=== PATIENT | female | born 1960 | race Caucasian/White ===

== ENCOUNTER 2020-08-24 11:43 | Emergency (ER) | payer BC ==
[2020-08-24] MEDS ORDERED: Sodium Chloride 0.9% 10 ML Syringe FLUSH PRN (12:08)
[2020-08-24] MEDS ORDERED: Lactated Ringers 1,000 ML IV ONE (12:20)
--- NOTE | 2020-08-24 12:21 | EDM.PDOC ---
ED HPI GENERAL MEDICAL PROBLEM - General Stated Complaint: FATIGUE,DIARRHEA Time Seen by Provider: 08/24/20 12:05 Source of Information: Reports: Patient History Limitations: Reports: No Limitations - History of Present Illness INITIAL COMMENTS - FREE TEXT/NARRATIVE: Patient comes emergency department today from home after being directed to the ER with complaints of left lower quadrant abdominal pain. This patient for about the last 2 weeks has had diarrhea. The last couple of days her stools have changed to more ribbon type stools. She has also developed left lower quadrant pain that goes into her back. No fever no chills. Some nausea without vomiting. No weakness dizziness lightheadedness. No chest pain shortness of breath or difficulty breathing. No fever no chills. No other pain in her abdomen. She has had hysterectomy in the past. No flank pain. No hematuria dysuria or urinary frequency. No black or tarry stools. She does have a first degree relative her father who of colon cancer. She has received 3 colonoscopies in the past her last one was actually 10 years ago. She is scheduled to have one here in September as well. - Related Data Allergies Allergy/AdvReac Type Severity Reaction Status Date / Time No Known Allergies Allergy Verified 08/24/20 12:57 Home Meds: Home Meds ALPRAZolam [Xanax] 0.5 - 1 mg PO BID PRN 08/24/20 [History] Ciprofloxacin HCl [Cipro] 500 mg PO BID #20 tablet 08/24/20 [Rx] Escitalopram Oxalate 10 mg PO DAILY 08/24/20 [History] Hydrocodone/Acetaminophen [[place] 5-325 Tablet] 1 each PO Q6HR #12 tablet 08/24/20 [Rx] metroNIDAZOLE [Flagyl] 500 mg PO Q8H #30 tab 08/24/20 [Rx] ED ROS GENERAL - Review of Systems Review Of Systems: Comprehensive ROS is negative, except as noted in HPI. ED EXAM, GENERAL - Physical Exam Exam: See Below Exam Limited By: No Limitations General Appearance: Alert, WD/WN, No Apparent Distress Throat/Mouth: Normal Inspection Head: Atraumatic, Normocephalic Neck: Normal Inspection, Supple Respiratory/Chest: No Respiratory Distress, Lungs Clear, Normal Breath Sounds, No Accessory Muscle Use, Chest Non-Tender Cardiovascular: Normal Peripheral Pulses, Regular Rate, Rhythm GI/Abdominal: Normal Bowel Sounds, Soft, Guarding (LLQ), Rebound (LLQ), Tender (LLQ). No: Distended, Rigid, Hernia, Mass (Female) Exam: Deferred Rectal (Female) Exam: Deferred Back Exam: Normal Inspection, Full Range of Motion Extremities: Normal Inspection, Normal Range of Motion, No Pedal Edema, Normal Capillary Refill Neurological: Alert, Oriented, Normal Cognition, No Motor/Sensory Deficits Psychiatric: Normal Affect, Normal Mood Skin Exam: Warm, Dry, Intact, Normal Color Lymphatic: No Adenopathy Course - Vital Signs Last Recorded V/S: Last Vital Signs Temp 98.1 F 08/24/20 11:50 Pulse 95 08/24/20 11:50 Resp 16 08/24/20 11:50 BP 134/81 08/24/20 11:50 Pulse Ox 96 08/24/20 11:50 - Orders/Labs/Meds Orders: Active Orders 24 hr Category Date Time Status Sodium Chloride 0.9% [Saline Flush] Med 08/24/20 12:08 Active 10 ml FLUSH ASDIRECTED PRN Peripheral IV Insertion Adult [OM.PC] Stat Oth 08/24/20 12:08 Ordered Medication Orders Sodium Chloride (Saline Flush) 10 ml FLUSH ASDIRECTED PRN PRN Reason: Keep Vein Open Labs: Laboratory Tests 08/24/20 08/24/20 08/24/20 Range/Units 12:18 12:18 13:01 WBC 9.6 (4.0-10.0) x10^3/uL RBC 4.44 (4.00-5.50) x10^6/uL Hgb 12.6 (12.0-16.0) g/dL Hct 39.3 (33.0-47.0) % MCV 88.5 (78.0-93.0) fL MCH 28.4 (26.0-32.0) pg MCHC 32.1 (32.0-36.0) g/dL RDW Coeff of [place] 13.9 (10.0-15.0) % Plt Count 222 (130-400) x10^3/uL Neut % (Auto) 72.4 (50.0-80.0) % Lymph % (Auto) 19.1 L (25.0-50.0) % [place] % (Auto) 7.1 (2.0-11.0) % Eos % (Auto) 1.2 (0.0-4.0) % Baso % (Auto) 0.2 (0.2-1.2) % Sodium 138 (136-145) mmol/L Potassium 4.2 (3.5-5.1) mmol/L Chloride 104 (98-107) mmol/L Carbon Dioxide 25 (21-32) mmol/L Anion Gap 13.2 (10-20) mmol/L BUN 15 (7-18) mg/dL Creatinine 0.8 (0.55-1.02) mg/dL Est Cr Clr Drug Dosing TNP Estimated GFR (MDRD) > 60 Glucose 108 H (74-106) mg/dL Calcium 9.2 (8.5-10.1) mg/dL Corrected Calcium 9.68 (8.5-10.1) mg/dL Total Bilirubin 0.5 (0.2-1.0) mg/dL AST 14 L (15-37) U/L ALT 20 (14-59) U/L Alkaline Phosphatase 81 (46-116) U/L C-Reactive Protein 13.1 H (<=0.9) mg/dL Total Protein 7.0 (6.4-8.2) g/dL Albumin 3.4 (3.4-5.0) g/dL Globulin 3.6 Albumin/Globulin Ratio 0.94 Urine Color Light yellow (YELLOW) Urine Appearance Clear (CLEAR) Urine pH 6.0 (5.0-8.0) Ur Specific [place] 1.010 Urine Protein Negative (NEGATIVE) mg/dL Urine Glucose (UA) Negative (NEGATIVE) mg/dL Urine Ketones Negative (NEGATIVE) mg/dL Urine Occult Blood Small H (NEGATIVE) Urine Nitrite Negative (NEGATIVE) Urine Bilirubin Negative (NEGATIVE) Urine Urobilinogen 0.2 (0.2) EU/dL Ur Leukocyte Esterase Negative (NEGATIVE) Urine RBC 0-5 (NOT SEEN) /HPF Urine WBC 0-5 (NOT SEEN) /HPF Ur Squamous Epith Cells Rare (NEGATIVE) /HPF Urine Bacteria Not seen (NEGATIVE) /HPF Urine Mucus Not seen (NEGATIVE) /LPF Meds: Medications Generic Name Dose Route Start Last Admin Trade Name Freq PRN Reason Stop Dose Admin Sodium Chloride 10 ml 08/24/20 12:08 Saline Flush FLUSH ASDIRECTED PRN Keep Vein Open Discontinued Medications Generic Name Dose Route Start Last Admin Trade Name [place] PRN Reason Stop Dose Admin Ciprofloxacin 500 mg 08/24/20 13:39 08/24/20 13:57 Ciprofloxacin Hcl PO 08/24/20 13:40 500 mg ONETIME ONE Administration Lactated Ringer's 1,000 mls @ 999 mls/hr 08/24/20 12:20 08/24/20 12:24 Ringers, Lactated IV 08/24/20 13:20 999 mls/hr ONETIME ONE Administration Iopamidol 100 ml 08/24/20 12:55 08/24/20 12:58 Isovue-300 (61%) IVPUSH 08/24/20 12:56 100 ml ONETIME ONE Administration Ketorolac Tromethamine 30 mg 08/24/20 13:44 08/24/20 13:56 Toradol IVPUSH 08/24/20 13:45 30 mg ONETIME ONE Administration Metronidazole 500 mg 08/24/20 13:39 08/24/20 13:56 Flagyl PO 08/24/20 13:40 500 mg ONETIME ONE Administration - Radiology Interpretation Free Text/Narrative:: The abdomen pelvis per radiology abnormal pelvis of the sigmoid colon acute diverticulitis - Re-Assessments/Exams Free Text/Narrative Re-Assessment/Exam: 08/24/20 The patient was given a liter of LR wide open. Denied anything initially for pain. Labs improved WBC from yesterday that was 12 and today is 9. CRP is quite elevated. UA is not infectious. CT abd pelvis with acute diverticulitis. Ketorolac for pain. Review the laboratory evaluation as well as a CT scan acute diverticulitis. I discussed the plan of care with this patient. There is no sign of perforation. We will discharge her home with Cipro and Flagyl. Hydrocodone for pain. I explained to her if she has uncontrolled pain fever nausea vomiting or she is unable to keep her medications down she needs to return. She is understanding this. Discharge instructions as below are explained to the patient. She is comfortable with this plan and her questions are answered. I did recommend to her as well that with her history of a first-degree relative who of colon cancer that she should be receiving colonoscopies every 5 years she will take this up with her primary care provider when she rechecks with them on Sunday. Departure - Departure Time of Disposition: 13:40 Disposition: Home, Self-Care 01 Clinical Impression: Acute diverticulitis - Discharge Information Prescriptions: Ciprofloxacin HCl [Cipro] 500 mg PO BID #20 tablet metroNIDAZOLE [Flagyl] 500 mg PO Q8H #30 tab Hydrocodone/Acetaminophen [[place] 5-325 Tablet] 1 each PO Q6HR #12 tablet Instructions: Diverticulitis, [id number], Antibiotic Medicine, Adult, [id number], Pain Medicine Instructions, [id number] Referrals: Casi Montanez PA-C [Primary Care Provider] - Additional Instructions: Tylenol and or Ibuprofen as needed for pain. Rest the next few days. Lots of fluids. Cipro, 1 tablet twice daily for the next 10 days. First dose given in the ED and RX to [facility]. Metronidazole, 1 tablet three times daily for the next 10 days. First dose given in the ED and RX to [facility]. If pain not controlled with above. [place] 1 tablet every 6 hrs with food as needed for pain. Caution sedation. RX sent to [facility]. Recheck in the clinic sunday. Return to the ED if new or worsening symptoms. If uncontrolled fever with Tylenol or Ibuprofen. Unable to keep your medications down. Pain getting worse. Sepsis Event Note (ED) - Focused Exam Vital Signs: Vital Signs Temp Pulse Resp BP Pulse Ox 08/24/20 11:50 98.1 F 95 16 134/81 96 - My Orders Last 24 Hours: My Active Orders 08/24/20 12:08 Sodium Chloride 0.9% [Saline Flush] 10 ml FLUSH ASDIRECTED PRN Peripheral IV Insertion Adult [OM.PC] Stat - Assessment/Plan Last 24 Hours: My Active Orders 08/24/20 12:08 Sodium Chloride 0.9% [Saline Flush] 10 ml FLUSH ASDIRECTED PRN Peripheral IV Insertion Adult [OM.PC] Stat
[2020-08-24 12:43] LABS: CHLORIDE,CL 104 mmol/L (98-107); SODIUM,NA 138 mmol/L (136-145)
[2020-08-24 12:45] LABS: ANION GAP 13.2 mmol/L (10-20)
[2020-08-24] MEDS ORDERED: Iopamidol 612 MG/ML 100 ML Bottle IVPUSH ONE (12:55)
--- NOTE | 2020-08-24 13:24 | CT ---
[id number] CT/CT Abdomen Pelvis W IV EXAM: CT Abdomen Pelvis W IV CLINICAL DATA: LEFT LOWER QUADRANT PAIN COMPARISON: NO PREVIOUS SIMILAR EXAM IS AVAILABLE. FINDINGS: There is an abnormal appearance of the sigmoid colon There is diverticular disease. The differential diagnosis of the sigmoid abnormality includes diverticulitis versus pseudomembranous colitis Diverticulitis is favored The pelvis shows no mass or adenopathy The uterus and ovaries are not seen The appendix is normal. The liver and spleen, kidneys and adrenals, pancreas and aorta are unremarkable There are occasional tiny hepatic cysts The gallbladder is not distended IMPRESSION: ACUTE DIVERTICULITIS Sergo Moreno MD 08/24/20 [id number] Thank you for allowing us to participate in the care of your patient.
[2020-08-24] MEDS ORDERED: Ciprofloxacin 500 MG Tab PO ONE (13:39)
[2020-08-24] MEDS ORDERED: metroNIDAZOLE 500 MG Tab PO ONE (13:39)
[2020-08-24] MEDS ORDERED: Ketorolac 30 MG/ML SDV IVPUSH ONE (13:44)
== END 2020-08-24 14:15 | disposition home or self-care (01) ==
LOC: SUPCPDRO 11:43 → VM.ED 11:43
DX: K57.32 Diverticulitis of large intestine without perforation or abscess without bleeding (principal); Z90.710 Acquired absence of both cervix and uterus
CPT/HCPCS: 74177; 80053; 81001; 85025; 86140; 96374; 99283; 99284-25; A9270-GY; J1885; J7120; Q9967

== ENCOUNTER 2020-10-15 07:02 | Day surgery (SDC) | payer BC ==
[~2020-10-15 07:02] MED LIST: Lactated Ringers 1,000 ML IV SCH
[2020-10-15] MEDS ORDERED: Propofol 200 MG/20 ML SDV ONE ×5 (08:21→09:24)
--- NOTE | 2020-10-15 12:00 | OR ---
PREOPERATIVE DIAGNOSES: 1. Recent episode of diverticulitis, resolved 2 months ago. 2. History of tubular adenoma. 3. Family history of colorectal cancer in father at age 60. POSTOPERATIVE DIAGNOSES: 1. Recent episode of diverticulitis, resolved 2 months ago. 2. History of tubular adenoma. 3. Family history of colorectal cancer in father at age 60. 4. Large ascending polyp, not amenable to an endoscopic resection. PROCEDURE PERFORMED: Total flexible colonoscopy with biopsies. ANESTHESIA: MAC anesthesia. COMPLICATIONS: None apparent. BLOOD LOSS: Minimal. FINDINGS: 1. Ascending colon polyp, 2 cm, flat, saline lift with piecemeal hot snare resection. 2. Large hepatic flexure polyp, 3 to 4 cm, flat, biopsies obtained and tattoo applied. 3. Sigmoid diverticulosis. 4. Sigmoid polyps x2, 2 mm, cold forceps. 5. Rectal polyp, 2 mm, cold forceps. START TIME: 0836. CECUM TIME: 0851. STOP TIME: 0935. BOWEL PREP: [place] class 3. INDICATION FOR PROCEDURE: Ms. Thornton is a 60-year-old female who recently had an episode of diverticulitis about 2 months ago. This was resolved with antibiotics. She did have a screening colonoscopy 10 years ago and reportedly had a tubular adenoma. She denies bloody or dark black stools currently. Her dad did have colorectal cancer at about age 60. DETAILS OF PROCEDURE: After informed consent was obtained, the patient was brought to the procedure room, placed in left lateral decubitus position. MAC anesthesia was induced by Anesthesia colleagues. The colonoscope was introduced into the rectum and advanced all the way to the cecum. Shows somewhat tortuous colon, but we were able to navigate this with a little bit of additional effort. The appendiceal orifice and ileocecal valve were photographed. The colonoscope was then slowly withdrawn. No pathology was identified except for what is mentioned in the above findings section. A retroflexed view was obtained. [place] noting is that her hepatic flexure polyp was too large for endoscopic resection, it did not appear malignant, but she will need a right hemicolectomy to remove this. RECOMMENDATIONS: Follow up in [facility] in the near future to plan for right hemicolectomy. PATHOLOGY: A) Colon, ascending 2.5cm flat polyp Sessile serrated adenoma with submucosal lipoma B) Colon, hepatic flexure, polyp biopsy Sessile serrated adenoma C) Colon, sigmoid, polyps x2 Hyperplastic polyps D) Rectum, polyp Benign polypoid colonic mucosa No adenomatous or hyperplastic polyp identified RKM: 10/15/2020 09:49:22 MODL: 10/15/2020 11:15:18 /[id number] MTDD
== END 2020-10-15 11:09 | disposition home or self-care (01) ==
LOC: VM.SDS 07:02
PROVIDERS: ATTEND Student in an Organized Health Care Education/Training Program
DX: Z12.11 Encounter for screening for malignant neoplasm of colon (principal); D12.2 Benign neoplasm of ascending colon; D12.3 Benign neoplasm of transverse colon; K62.1 Rectal polyp; K57.30 Diverticulosis of large intestine without perforation or abscess without bleeding; E66.9 Obesity, unspecified; F41.0 Panic disorder [episodic paroxysmal anxiety]; F41.1 Generalized anxiety disorder; E78.5 Hyperlipidemia, unspecified; Z87.891 Personal history of nicotine dependence; Z68.35 Body mass index [BMI] 35.0-35.9, adult; Z01.812 Encounter for preprocedural laboratory examination; Z20.828 Contact with and (suspected) exposure to other viral communicable diseases; Z80.0 Family history of malignant neoplasm of digestive organs; Z86.010 Personal history of colon polyps; Z87.19 Personal history of other diseases of the digestive system; Z98.890 Other specified postprocedural states; Z79.899 Other long term (current) drug therapy
CPT/HCPCS: 00812; J2704; J7120; U0002

== ENCOUNTER 2023-01-12 09:00 | Day surgery (SDC) | payer BC ==
[~2023-01-12 09:00] MED LIST changes: +Sodium Chloride 0.9% 10 ML Syringe FLUSH PRN
[2023-01-12] MEDS ORDERED: fentaNYL 100 MCG/2 ML SDV ONE (10:51)
[2023-01-12] MEDS ORDERED: Propofol 200 MG/20 ML SDV ONE ×2 (10:51→11:47)
== END 2023-01-12 13:09 | disposition home or self-care (01) ==
LOC: VM.SDS 09:00
PROVIDERS: ATTEND Student in an Organized Health Care Education/Training Program
DX: Z12.11 Encounter for screening for malignant neoplasm of colon (principal); E78.5 Hyperlipidemia, unspecified; E66.9 Obesity, unspecified; R73.01 Impaired fasting glucose; M79.7 Fibromyalgia; K21.9 Gastro-esophageal reflux disease without esophagitis; M19.90 Unspecified osteoarthritis, unspecified site; F41.1 Generalized anxiety disorder; F32.9 Major depressive disorder, single episode, unspecified; M81.0 Age-related osteoporosis without current pathological fracture; Z86.010 Personal history of colon polyps; Z80.0 Family history of malignant neoplasm of digestive organs; Z98.890 Other specified postprocedural states; Z79.899 Other long term (current) drug therapy
CPT/HCPCS: 00811; J2704; J3010; J7120

== ENCOUNTER 2023-04-09 18:35 | Emergency (ER) | payer OTHER, BC ==
[2023-04-09] MEDS ORDERED: HYDROmorphone 0.5 MG/0.5 ML Syringe IVPUSH ONE ×3 (18:39→21:52)
[2023-04-09] MEDS ORDERED: LORazepam 2 MG/ML SDV IVPUSH ONE (18:59)
[2023-04-09 19:35] LABS: BASOPHILS PERCENT AUTO 0.2 % (0.2-1.2); EOSINOPHILS ABSOLUTE AUTO 0.1 x10^3/uL (0.0-0.5); EOSINOPHILS PERCENT AUTO 1.4 % (0.0-4.0); HEMATOCRIT 35.1 % (33.0-47.0); HEMOGLOBIN 11.6 g/dL (12.0-16.0); IMMATURE GRAN ABSOLUTE AUTO 0.01 x10^3/uL (0.00-0.07); LYMPHOCYTES ABSOLUTE AUTO 1.4 x10^3/uL (1.0-4.8); LYMPHOCYTES PERCENT AUTO 22.3 % (25.0-50.0); MEAN CORPUSCULAR VOLUME 84.6 fL (78.0-93.0); MONOCYTES ABSOLUTE AUTO 0.4 x10^3/uL (0.0-0.8); MONOCYTES PERCENT AUTO 6.3 % (2.0-11.0); NEUTROPHILS ABSOLUTE AUTO 4.5 x10^3/uL (1.8-7.7); NEUTROPHILS PERCENT AUTO 69.6 % (50.0-80.0); PLATELET COUNT,PLT 233 x10^3/uL (130-400); RED BLOOD CELL COUNT 4.15 x10^6/uL (4.00-5.50); WHITE BLOOD CELL COUNT,WBC 6.5 x10^3/uL (4.0-10.0)
[2023-04-09 19:45] LABS: PROTHROMBIN TIME 10.5 SEC (9.5-12.2)
[2023-04-09 19:51] LABS: A/G RATIO 1.21; ALANINE AMINOTRANSFERASE,ALT 20 U/L (14-59); ALBUMIN 3.5 g/dL (3.4-5.0); ALKALINE PHOSPHATASE 70 U/L (46-116); ANION GAP 18.6 mmol/L (5-15); ASPARTATE AMNIOTRANSFERASE,AST 17 U/L (15-37); BILIRUBIN TOTAL 0.3 mg/dL (0.2-1.0); BLOOD UREA NITROGEN,BUN 18 mg/dL (7-18); CALCIUM 8.9 mg/dL (8.5-10.1); CARBON DIOXIDE,CO2 22 mmol/L (21-32); CHLORIDE,CL 105 mmol/L (98-107); CREATININE 0.8 mg/dL (0.55-1.02); ESTIMATED GFR 84 mL/min (>=60); GLUCOSE RANDOM 118 mg/dL (70-99); POTASSIUM,K 3.6 mmol/L (3.5-5.1); PROTEIN TOTAL,TP 6.4 g/dL (6.4-8.2); SODIUM,NA 142 mmol/L (136-145)
== END 2023-04-09 22:00 | disposition short-term general hospital (02) ==
LOC: VM.ED 18:35
DX: S72.402A Unspecified fracture of lower end of left femur, initial encounter for closed fracture (principal); E66.9 Obesity, unspecified; Z68.30 Body mass index [BMI] 30.0-30.9, adult; Z88.8 Allergy status to other drugs, medicaments and biological substances; Z96.652 Presence of left artificial knee joint; W18.30XA Fall on same level, unspecified, initial encounter
CPT/HCPCS: 36415; 73700-LT; 80053; 85025; 85610; 94760; 96374; 96375; 96376; 99284; 99285-25; J1170; J2060